=== PATIENT | female | born 1985 | race African-American/Black ===

== ENCOUNTER 2017-08-13 14:36 | Emergency (ER) | payer MEDICAID ==
[~2017-08-13] VITALS: Ht 175.3 cm; Wt 55.0 kg
[2017-08-13 15:00] VITALS: BP 121/75
== END 2017-08-13 19:20 | disposition left against medical advice (07) ==
LOC: ER 14:44
DX: M54.9 Dorsalgia, unspecified (principal); Z53.21 Procedure and treatment not carried out due to patient leaving prior to being seen by health care provider